=== PATIENT | male | born 1960 | race Caucasian/White ===

== ENCOUNTER 2023-01-14 17:35 | Emergency (ER) | payer MEDICARE ==
[~2023-01-14] VITALS: Ht 180.3 cm; Wt 145.2 kg
[2023-01-14] MEDS ORDERED: TOPROL XL50 MG PO (17:51)
[2023-01-14] MEDS ORDERED: CRESTOR40 MG NG (17:51)
[2023-01-14] MEDS ORDERED: METFORMIN HCL500 MG PO (17:53)
[2023-01-14] MEDS ORDERED: VAZALORE81 MG PO (17:53)
[2023-01-14] MEDS ORDERED: OXYCODONE HCL5 MG PO (17:54)
[2023-01-14] MEDS ORDERED: LASIX80 MG PO (17:54)
[2023-01-14 18:17] LABS: BASOPHILS 0.6 % (0-2); EOSINOPHILS 0.9 % (0-6); HEMATOCRIT 42.6 % (35.0-50.0); HEMOGLOBIN 14.9 g/dL (12.0-18.0); LYMPHOCYTES 16.8 % (24-44); MCH 30.2 (27-36); MCHC 34.9 g/dl (30-36); MCV 86.4 fl (81-99); MONOCYTES 9.5 % (0-12); NEUTROPHILS 72.2 % (39-80); PLATELET COUNT 154 K/uL (140-440); RBC 4.93 M/ul (4.3-5.7); RDW 14.2 (10.5-15.0)
[2023-01-14 18:32] LABS: ALBUMIN 3.7 g/dL (3.4-5.0); ALBUMIN/GLOBULIN RATIO 0.95 (1.1-2.4); ANION GAP 8.2 (7-21); BILIRUBIN, TOTAL 0.6 ng/dL (0.2-1.0); BUN/CREATININE RATIO 11.81 (6.0-28.6); CALCIUM 9.2 mg/dL (8.5-10.1); CREATININE, SERUM 1.27 mg/dL (0.70-1.30); MAGNESIUM 1.8 mg/dL (1.8-2.4); POTASSIUM 3.2 mmol/L (3.5-5.1); PROTEIN, TOTAL 7.6 g/dL (6.4-8.2)
[2023-01-14 20:35] VITALS: BP 174/98
--- NOTE | 2023-01-15 06:01 | EKG ---
[facility] [address] [facility] [place], [place] [address] Signed Sinus rhythm with occasional premature ventricular complexes Septal infarct , age undetermined Abnormal ECG No previous ECGs available Confirmed by CHRIS GUERRA MD ([id number]) on 01/15/2023 6:01:12 AM Electronically Signed By: CHRIS GUERRA 01/15/23 0601 PATIENT NAME: SERENE GUERRA Electrocardiogram DATE OF : 64 PHYSICIAN: CHRIS GUERRA REPORT #: [id number] REPORT IS CONFIDENTIAL AND NOT TO BE RELEASED WITHOUT AUTHORIZATION
== END 2023-01-14 20:35 | disposition home or self-care (01) ==
LOC: ED 17:35
PROVIDERS: Emergency Medicine
DX: R51.9 Headache, unspecified (principal); I10 Essential (primary) hypertension; E11.9 Type 2 diabetes mellitus without complications; Z88.5 Allergy status to narcotic agent; Z79.899 Other long term (current) drug therapy; Z79.84 Long term (current) use of oral hypoglycemic drugs
CPT/HCPCS: 36415; 70450; 71045; 80053; 83735; 84484; 85025; 93005; 93010; 99284-25; A9270